=== PATIENT | female | born 1970 | race Caucasian/White ===

== ENCOUNTER 2019-08-07 19:29 | Emergency (ER) | payer BC, MEDICAID ==
[~2019-08-07] VITALS: Ht 154.9 cm; Wt 52.3 kg
[2019-08-07] MEDS ORDERED: ketorolac trometh inj. 60 MG/2 ML VIAL IM ONE (21:00)
[2019-08-07] MEDS ORDERED: HYDROcodone/acetaminophen 5mg/325mg tablet PO ONE (21:40)
[2019-08-07] MEDS ORDERED: LORazepam 1 MG tablet PO ONE (21:40)
[2019-08-07] MEDS ORDERED: HYDR-3965 PO (21:45)
--- NOTE | 2019-08-07 21:54 | NUR ---
Pt refusing CT at this time, desires to discharge to home. MD notified.
[2019-08-07 22:10] VITALS: BP 110/70
== END 2019-08-07 22:07 | disposition home or self-care (01) ==
LOC: ER 19:33
DX: M79.671 Pain in right foot (principal); F12.90 Cannabis use, unspecified, uncomplicated; Z79.899 Other long term (current) drug therapy; V98.8XXA Other specified transport accidents, initial encounter; Y93.89 Activity, other specified; Y92.89 Other specified places as the place of occurrence of the external cause; Y99.8 Other external cause status
CPT/HCPCS: 73630; 96372; 99284; J1885; 99283

== ENCOUNTER 2019-08-11 09:34 | Emergency (ER) | payer BC ==
[~2019-08-11] VITALS: Ht 154.9 cm; Wt 52.3 kg
[~2019-08-11 09:34] MED LIST: HYDR-3965 PO
[2019-08-11 11:12] VITALS: BP 115/81
== END 2019-08-11 11:13 | disposition home or self-care (01) ==
LOC: ER 09:35
DX: S20.212A Contusion of left front wall of thorax, initial encounter (principal); F12.90 Cannabis use, unspecified, uncomplicated; X58.XXXA Exposure to other specified factors, initial encounter; Y93.89 Activity, other specified; Y92.89 Other specified places as the place of occurrence of the external cause; Y99.8 Other external cause status
CPT/HCPCS: 99282

== ENCOUNTER 2020-08-19 11:23 | Emergency (ER) | payer BC ==
[~2020-08-19] VITALS: Ht 157.5 cm; Wt 50.0 kg
[2020-08-19 12:21] VITALS: BP 110/68
[2020-08-19 13:37] LABS: BASOPHILS % (AUTO) 0.3 % (0-1); EOSINOPHILS # (AUTO) 0.1 X10'3 (0-0.9); HEMATOCRIT 42.8 % (35.0-45.0); HEMOGLOBIN 14.3 g/dl (12.0-16.0); LYMPHOCYTES # (AUTO) 1.6 X10'3 (1.1-4.8); MEAN CORPUSCULAR HEMOGLOBIN 30.1 PG (27.0-31.0); MEAN CORPUSCULAR HGB CONC 33.4 g/dL (33.0-36.5); MEAN PLATELET VOLUME 7.3 FL (7.4-10.4); MONOCYTES # (AUTO) 1.3 X10'3 (0-0.9); MONOCYTES % (AUTO) 10.7 % (2-12); NEUTROPHILS # (AUTO) 9.1 X10'3 (1.8-7.7); PLATELET COUNT 372 X10'3 (140-440); RED BLOOD COUNT 4.75 X10'6 (4.20-5.60); RED CELL DISTRIBUTION WIDTH 13.9 % (11.5-14.5); WHITE BLOOD COUNT 12.1 X10'3 (4.5-11.0)
[2020-08-19 13:44] LABS: ALANINE AMINOTRANSFERASE 37 U/L (12-78); ALBUMIN/GLOBULIN RATIO 0.9 (1.1-1.5); ALKALINE PHOSPHATASE 113 IU/L (46-116); ANION GAP 10 (8-16); ASPARTATE AMINO TRANSFERASE 18 U/L (10-37); BILIRUBIN,TOTAL 0.6 MG/DL (0.1-1.0); BLOOD UREA NITROGEN 16 MG/DL (7-18); CALCIUM 9.3 MG/DL (8.5-10.1); CHLORIDE 102 MMOL/L (99-107); CREATININE 0.47 MG/DL (0.40-0.90); GLUCOSE 110 MG/DL (70-104); SODIUM 135 MMOL/L (135-145); TOTAL CARBON DIOXIDE 23.5 MMOL/L (24-32); TOTAL PROTEIN 8.4 G/DL (6.4-8.2); eGFR > 90 ML/MIN
== END 2020-08-19 19:19 | disposition left against medical advice (07) ==
LOC: ER 11:24
DX: R07.89 Other chest pain (principal); Z53.21 Procedure and treatment not carried out due to patient leaving prior to being seen by health care provider
CPT/HCPCS: 36415; 71045; 80053; 83880; 84484; 85025; 93005

== ENCOUNTER 2022-08-27 13:23 | Emergency (ER) | payer SELFPAY ==
[~2022-08-27] VITALS: Ht 154.9 cm; Wt 54.5 kg
[2022-08-27 13:38] VITALS: BP 113/88
== END 2022-08-27 13:57 | disposition home or self-care (01) ==
LOC: ER 13:23
DX: R11.2 Nausea with vomiting, unspecified (principal); F12.10 Cannabis abuse, uncomplicated
CPT/HCPCS: 99281